=== PATIENT | male | born 2005 | race Caucasian/White ===

== ENCOUNTER 2024-12-31 21:12 | Emergency (ER) | payer BC ==
[2024-12-31 21:26] VITALS: BP 145/80; PULSE 74
== END 2024-12-31 22:26 | disposition home or self-care (01) ==
LOC: MW.ED 21:12
DX: S93.401A Sprain of unspecified ligament of right ankle, initial encounter (principal); Z88.0 Allergy status to penicillin; Z88.1 Allergy status to other antibiotic agents; X50.1XXA Overexertion from prolonged static or awkward postures, initial encounter
CPT/HCPCS: 73610-26-RT; 73610-RT; 73620-26-RT; 73620-RT; 99283; 99284